=== PATIENT | female | born 1985 | race Caucasian/White ===

== ENCOUNTER 2016-10-30 11:23 | Day surgery (SDC) | payer OTHER ==
[~2016-10-30] VITALS: Ht 157.5 cm; Wt 108.4 kg
[~2016-10-30 11:23] MED LIST: CLARITIN,ALAVAR10 MG PO; EFFEXOR XR37.5 MG PO; ERGOCALCIF50000 UNIT PO; LYRICA50 MG PO; MELOXICAM15 MG PO; MULTIVITAMIN1 EAC2 PO; NASACORT10.8 ML BOTH NARES; OMEGA 3-6-9 CO1 EACH PO; TIZANIDINE HCL2 MG PO; TRAZODONE HCL50 MG PO; TRILEPTAL300 MG PO; VENTOLIN HFA18 GM IH; VYVANSE30 MG PO
[2016-10-30 12:09] VITALS: BP 129/80
[2016-10-30 19:06] VITALS: BP 117/61
[2016-10-30 20:05] VITALS: BP 109/70
== END 2016-10-30 20:35 | disposition home or self-care (01) ==
LOC: SDC 11:23
DX: M47.27 Other spondylosis with radiculopathy, lumbosacral region (principal); M48.07 Spinal stenosis, lumbosacral region; M51.16 Intervertebral disc disorders with radiculopathy, lumbar region; F41.8 Other specified anxiety disorders; Z83.3 Family history of diabetes mellitus; Z81.8 Family history of other mental and behavioral disorders; Z82.49 Family history of ischemic heart disease and other diseases of the circulatory system; Z82.0 Family history of epilepsy and other diseases of the nervous system
CPT/HCPCS: 72020; 76000; J0330; J0690; J1170; J1885; J2405; J2710; J2930; J3010; S0020